=== PATIENT | male | born 1985 | race Two or more races ===

== ENCOUNTER 2020-05-09 17:59 | Inpatient (IN) | payer MEDICAID, OTHER ==
[~2020-05-09] VITALS: Ht 170.2 cm; Wt 95.0 kg
[2020-05-09] MEDS ORDERED: cloNIDine HCL 0.1 MG TAB PO ONE (18:30)
[2020-05-09] MEDS ORDERED: cloNIDine HCL 0.1 MG TAB ONE (18:32)
[2020-05-09 20:24] LABS: Urine Bacteria NONE SEEN /hpf (None Seen); Urine Blood 1+ /uL (Negative); Urine Specific Gravity 1.025 (1.001-1.035); Urine WBC <1 /hpf (0 - 3)
[2020-05-09 20:43] LABS: Eosinophils # (auto) 0 10 ^3/uL (0-0.8); Hemoglobin 18.4 g/dL (13.5-17.5)
[2020-05-09 20:45] LABS: Basophils # (auto) 0.2 10 ^3/uL (0-0.2); Hematocrit 53.4 % (41.0-53.0); Lymphocytes # (auto) 1.2 10 ^3/uL (0.4-5.4); Mean Corpuscular Hemoglobin 33.9 pg (28.0-32.0); Mean Corpuscular Hgb Conc. 34.5 g/dL (32.0-36.0); Mean Corpuscular Volume 98.2 fL (80.0-100.0); Monocytes # (auto) 0.8 10 ^3/uL (0-1.3); Monocytes % (auto) 4.4 % (0.0-12.0); Neutrophils % (auto) 87.6 % (37.0-80.0); Nucleated Red Blood Cells % 0.1 %; Platelet Count (auto) 293 10^3/uL (140-450); Red Blood Cells 5.44 10^6/uL (4.5-5.90); Red Cell Distribution Width 13.4 % (11.8-14.3); White Blood Cell 17.1 10^3/uL (4.4-10.8)
[2020-05-09 21:01] LABS: Magnesium 2.4 mg/dL (1.6-2.6)
[2020-05-09 21:10] LABS: Albumin 4.5 g/dL (3.4-5.0); Calcium 8.8 mg/dL (8.5-10.1)
[2020-05-09 21:17] LABS: Potassium 5.3 mmol/L (3.5-5.1)
[2020-05-09] MEDS ORDERED: DEXTROSE (50%) 50ML SYRG IV PRN ×2 (22:00→22:30)
[2020-05-09] MEDS ORDERED: SODIUM CHLORIDE 0.9% 1,000 ML IVB ONE (22:00)
[2020-05-09] MEDS ORDERED: InsuLIN R (HUMAN) 100 UNITS in SODIUM CHL 0.9% 99 ML IV SCH ×2 (22:00→22:30)
[2020-05-09] MEDS ORDERED: ONDANSETRON HCL 4 MG/2 ML VIAL IV ONE (22:00)
[2020-05-09] MEDS ORDERED: MORPHINE SULF INJ 2 MG/ML SYRINGE 1ML IV ONE (22:00)
[2020-05-09] MEDS ORDERED: SODIUM CHLORIDE 0.9% 1,000 ML IV ONE (22:00)
[2020-05-09 22:02] LABS: BUN/Creatinine Ratio 9.6
[2020-05-09 22:03] LABS: Total Protein 10.1 g/dL (6.4-8.2)
[2020-05-09] MEDS ORDERED: SODIUM BICARBONATE 8.4 % INJ 50ML VIAL IV ONE (22:15)
[2020-05-09] MEDS ORDERED: SODIUM BICARBONATE 8.4% INJ 50ML SYRINGE ONE (22:16)
[2020-05-09] MEDS ORDERED: INSULIN LANTUS (GLARGINE) 1 /0.01ml (100units/ml) SC ONE (22:30)
[2020-05-09] MEDS ORDERED: ACCU-CHEK COMFORT CURVE STRIP VI SCH (22:30)
[2020-05-09] MEDS ORDERED: ONDANSETRON HCL 4 MG/2 ML VIAL IV PRN (22:30)
[2020-05-09] MEDS ORDERED: MORPHINE SULFATE 4 MG/ML SYR/VIAL IV PRN (22:30)
[2020-05-09] MEDS ORDERED: MORPHINE SULF INJ 2 MG/ML SYRINGE 1ML IV PRN (22:30)
[2020-05-09] MEDS ORDERED: NITROGLYCERIN 0.4 MG SL TAB SL PRN (22:30)
[2020-05-09] MEDS: ACCU-CHEK COMFORT CURVE STRIP VI SCH (22:38)
[2020-05-09 22:57] LABS: INR 1.01 (0.9-1.15); Partial Thromboplastin Time 27.9 sec (23.0-31.2)
[2020-05-09] MEDS: SODIUM CHLORIDE 0.9% 1,000 ML IV SCH (23:00)
[2020-05-09] MEDS: cloNIDine HCL 0.1 MG TAB PO PRN (23:37)
[2020-05-09 23:45] LABS: Calcium 7.9 mg/dL (8.5-10.1)
[2020-05-09 23:48] LABS: BUN/Creatinine Ratio 8.7
[2020-05-10] MEDS: ACCU-CHEK COMFORT CURVE STRIP VI SCH ×16 (00:01→22:42)
[2020-05-10 00:11] LABS: Potassium 6.1 mmol/L (3.5-5.1)
[2020-05-10] MEDS ORDERED: SODIUM BICARBONATE 50ML VIAL 50 ML in SOD CHL 0.45% 1,000 ML IV SCH (00:30)
[2020-05-10] MEDS ORDERED: SODIUM BICARBONATE 8.4 % INJ 50ML VIAL IV ONE ×2 (00:30→04:30)
[2020-05-10] MEDS ORDERED: SODIUM ZIRCONIUM CYCL 10 GM PAK PO ONE (00:30)
[2020-05-10] MEDS ORDERED: SODIUM BICARBONATE 8.4% INJ 50ML SYRINGE ONE ×2 (00:45→06:40)
[2020-05-10] MEDS: SODIUM CHLORIDE 0.9% 1,000 ML IV SCH ×3 (01:12→11:10)
[2020-05-10] MEDS ORDERED: LABETALOL HCL 5 MG/ML 4ML SYRINGE IV ONE (01:15)
[2020-05-10] MEDS ORDERED: SODIUM CHLORIDE 0.9% 1,000 ML IV SCH ×2 (02:00→02:30)
[2020-05-10] MEDS ORDERED: dilTIAZem 25 MG/5 ML VIAL IV ONE (02:45)
[2020-05-10] MEDS ORDERED: SODIUM BICARBONATE 50ML VIAL 100 ML in SOD CHL 0.45% 1,000 ML IV ONE (04:30)
[2020-05-10 05:56] LABS: Basophils # (auto) 0 10 ^3/uL (0-0.2); Basophils % (auto) 0.3 % (0.0-2.0); Eosinophils # (auto) 0 10 ^3/uL (0-0.8); Hematocrit 46.7 % (41.0-53.0); Hemoglobin 15.8 g/dL (13.5-17.5); Lymphocytes # (auto) 0.9 10 ^3/uL (0.4-5.4); Lymphocytes % (auto) 6.5 % (10.0-50.0); Mean Corpuscular Hemoglobin 33.1 pg (28.0-32.0); Mean Corpuscular Hgb Conc. 33.8 g/dL (32.0-36.0); Mean Corpuscular Volume 97.9 fL (80.0-100.0); Monocytes % (auto) 6.9 % (0.0-12.0); Neutrophils # (auto) 12.6 10 ^3/uL (1.6-8.6); Neutrophils % (auto) 86.3 % (37.0-80.0); Platelet Count (auto) 215 10^3/uL (140-450); Red Blood Cells 4.77 10^6/uL (4.5-5.90); Red Cell Distribution Width 13.5 % (11.8-14.3); White Blood Cell 14.6 10^3/uL (4.4-10.8)
[2020-05-10 06:18] LABS: BUN/Creatinine Ratio 5.6; Calcium 7.6 mg/dL (8.5-10.1); Potassium 5.4 mmol/L (3.5-5.1)
[2020-05-10] MEDS ORDERED: SODIUM BICARBONATE 50ML VIAL 150 ML in SOD CHL 0.45% 1,000 ML IV ONE (06:30)
[2020-05-10] MEDS: cloNIDine HCL 0.1 MG TAB PO PRN ×2 (10:02→18:40)
[2020-05-10] MEDS: INSULIN LANTUS (GLARGINE) 1 /0.01ml (100units/ml) SC SCH (10:21)
[2020-05-10 10:48] LABS: BUN/Creatinine Ratio 4.3; Calcium 7.7 mg/dL (8.5-10.1); Potassium 4.3 mmol/L (3.5-5.1)
[2020-05-10] MEDS: InsuLIN R (HUMAN) 100 UNITS in SODIUM CHL 0.9% 99 ML IV SCH ×2 (12:40→13:35)
[2020-05-10] MEDS ORDERED: MORPHINE SULF INJ 2 MG/ML SYRINGE 1ML IV PRN (15:30)
[2020-05-10 15:59] LABS: BUN/Creatinine Ratio 4.9; Calcium 8.1 mg/dL (8.5-10.1); Potassium 3.6 mmol/L (3.5-5.1)
[2020-05-10] MEDS: POTASSIUM CHLORIDE 20 MEQ in LACTATED RINGER'S 1,000 ML IV SCH ×2 (17:30→23:29)
[2020-05-10] MEDS ORDERED: InsuLIN REG 1unit/0.01ml Soln (100units/ml) IV ONE (18:15)
[2020-05-10 21:18] LABS: BUN/Creatinine Ratio 5.6; Calcium 8.8 mg/dL (8.5-10.1); Potassium 3.4 mmol/L (3.5-5.1)
[2020-05-10] MEDS: PANTOPRAZOLE 40 MG/10 ML VIAL INJ IV SCH (21:42)
[2020-05-10] MEDS: METOPROLOL TARTRATE 25 MG TAB PO SCH ×2 (21:43→22:43)
[2020-05-11] MEDS: ACCU-CHEK COMFORT CURVE STRIP VI SCH ×9 (01:43→20:54)
[2020-05-11 06:09] LABS: Basophils # (auto) 0 10 ^3/uL (0-0.2); Basophils % (auto) 0.1 % (0.0-2.0); Eosinophils # (auto) 0 10 ^3/uL (0-0.8); Hemoglobin 15.1 g/dL (13.5-17.5); Lymphocytes # (auto) 0.6 10 ^3/uL (0.4-5.4); Lymphocytes % (auto) 6.3 % (10.0-50.0); Mean Corpuscular Hemoglobin 32.8 pg (28.0-32.0); Mean Corpuscular Hgb Conc. 33.6 g/dL (32.0-36.0); Mean Corpuscular Volume 97.7 fL (80.0-100.0); Monocytes # (auto) 0.6 10 ^3/uL (0-1.3); Monocytes % (auto) 6.5 % (0.0-12.0); Neutrophils # (auto) 8.6 10 ^3/uL (1.6-8.6); Neutrophils % (auto) 87.1 % (37.0-80.0); Nucleated Red Blood Cells % 0.1 %; Platelet Count (auto) 165 10^3/uL (140-450); Red Blood Cells 4.61 10^6/uL (4.5-5.90); Red Cell Distribution Width 14.4 % (11.8-14.3); White Blood Cell 9.9 10^3/uL (4.4-10.8)
[2020-05-11 06:26] LABS: Chloride 112 mmol/L (98-107); Potassium 3.3 mmol/L (3.5-5.1); Sodium 139 mmol/L (136-145)
[2020-05-11 06:38] LABS: Alanine Aminotransferase 80 U/L (16-61); Albumin 3.1 g/dL (3.4-5.0); Alkaline Phosphatase 76 U/L (45-117); Amylase 67 U/L (25-115); Anion Gap 14 (5-15); Aspartate Aminotransferase 25 U/L (15-37); BUN/Creatinine Ratio 6.9; Bilirubin, Total 0.9 mg/dL (0.2-1.0); Blood Urea Nitrogen 6 mg/dL (7-18); Carbon Dioxide 13 mmol/L (21-32); Cholesterol 278 mg/dL (< 200); GFR African American 128 mL/min; GFR Non-African American 106 mL/min; Glucose 220 mg/dL (74-106); HDL Cholesterol 40 mg/dL (40-59); Lipase 928 U/L (73-393); Magnesium 2.4 mg/dL (1.6-2.6); Total Protein 7.2 g/dL (6.4-8.2); Triglycerides 419 mg/dL (< 150)
[2020-05-11] MEDS: POTASSIUM CHLORIDE 20 MEQ in LACTATED RINGER'S 1,000 ML IV SCH ×2 (07:28→17:56)
[2020-05-11] MEDS ORDERED: DEXTROSE (50%) 50ML SYRG IV PRN (09:00)
[2020-05-11] MEDS: POTASSIUM CHL 20MEQ/100ML 100 ML IV SCH ×2 (09:14→11:00)
[2020-05-11] MEDS: PANTOPRAZOLE 40 MG/10 ML VIAL INJ IV SCH ×2 (10:15→21:58)
[2020-05-11] MEDS: METOPROLOL TARTRATE 50 MG TAB PO SCH ×2 (10:17→21:58)
[2020-05-11] MEDS: INSULIN LANTUS (GLARGINE) 1 /0.01ml (100units/ml) SC SCH (10:17)
[2020-05-11 10:43] LABS: BUN/Creatinine Ratio 8.1; Calcium 9.5 mg/dL (8.5-10.1); Potassium 3.5 mmol/L (3.5-5.1)
--- NOTE | 2020-05-11 11:55 | NUR ---
Telemetry admit from [facility] admitted to Telemetry unit after SBAR received. Patient oriented to JESSICA HERRERA RN primary RN, unit, room, bed, and unit policies regarding patient care and visiting hours. Patient now on continuous telemetry monitoring, tele box # 86 and telemetry reading on arrival to unit is sinus tachycardia. Patient is on room air, respirations are even and non labored. Weighed by bedscale and encouraged to call if they need something. All questions and concerns addressed, patient verbalized understanding.
[2020-05-11 12:03] VITALS: BP 166/114
[2020-05-11] MEDS: cloNIDine HCL 0.1 MG TAB PO PRN (12:51)
--- NOTE | 2020-05-11 12:51 | NUR ---
PRN blood pressure med given
[2020-05-11 12:55] VITALS: BP 164/114
[2020-05-11] MEDS ORDERED: LISINOPRIL 20 MG TAB PO ONE (14:30)
[2020-05-11] MEDS: InsuLIN REG 1unit/0.01ml Soln (100units/ml) SC SCH ×3 (14:33→20:55)
[2020-05-11 16:51] VITALS: BP 149/105
[2020-05-11] MEDS: ATORVASTATIN 20 MG TAB PO SCH (21:58)
[2020-05-11 22:00] VITALS: BP 151/97
[2020-05-11] MEDS ORDERED: INSULIN LANTUS (GLARGINE) 1 /0.01ml (100units/ml) SC SCH (22:00)
[2020-05-12] MEDS: POTASSIUM CHLORIDE 20 MEQ in LACTATED RINGER'S 1,000 ML IV SCH ×3 (00:07→16:00)
[2020-05-12] MEDS: ACCU-CHEK COMFORT CURVE STRIP VI SCH ×6 (00:07→20:35)
[2020-05-12] MEDS: InsuLIN REG 1unit/0.01ml Soln (100units/ml) SC SCH ×6 (00:13→20:34)
[2020-05-12 05:00] VITALS: BP 159/87
[2020-05-12 06:00] LABS: Basophils # (auto) 0 10 ^3/uL (0-0.2); Basophils % (auto) 0.2 % (0.0-2.0); Eosinophils # (auto) 0 10 ^3/uL (0-0.8); Eosinophils % (auto) 0.1 % (0.0-7.0); Hemoglobin 14.2 g/dL (13.5-17.5); Lymphocytes # (auto) 0.8 10 ^3/uL (0.4-5.4); Lymphocytes % (auto) 7.4 % (10.0-50.0); Mean Corpuscular Hgb Conc. 33.7 g/dL (32.0-36.0); Mean Corpuscular Volume 97.7 fL (80.0-100.0); Monocytes # (auto) 0.8 10 ^3/uL (0-1.3); Monocytes % (auto) 7.3 % (0.0-12.0); Neutrophils # (auto) 9.3 10 ^3/uL (1.6-8.6); Nucleated Red Blood Cells % 0.1 %; Platelet Count (auto) 170 10^3/uL (140-450); Red Cell Distribution Width 13.9 % (11.8-14.3); White Blood Cell 10.9 10^3/uL (4.4-10.8)
[2020-05-12 06:23] LABS: Potassium 3.4 mmol/L (3.5-5.1)
[2020-05-12 06:35] LABS: Albumin 2.8 g/dL (3.4-5.0); BUN/Creatinine Ratio 12.2; Magnesium 2.7 mg/dL (1.6-2.6); Total Protein 6.9 g/dL (6.4-8.2)
--- NOTE | 2020-05-12 07:25 | NUR ---
Opening Shift Note Assumed care of patient, awake, alert and oriented x 4. No S/S of distress/SOB or pain. Respirations are even and non labored on room air. Bed is in the lowest and locked position with side rails up x 2 and call light within reach. Instructed on POC and to call for assist PRN, will continue to monitor for changes Q1hr and PRN.
[2020-05-12 08:47] VITALS: BP 150/101
[2020-05-12 09:09] LABS: Alcohol, Urine < 3.0 mg/dL (0-10); Amphetamine Screen, Urine NEGATIVE (NEGATIVE); Barbiturate Scree,Urine NEGATIVE (NEGATIVE); Benzodiazephine Screen, Urine NEGATIVE (NEGATIVE); Cannabinoid Screen, Urine NEGATIVE (NEGATIVE); Cocaine Screen, Urine NEGATIVE (NEGATIVE); Opiate Scree,Urine NEGATIVE (NEGATIVE); Phencyclidine Screen, Urine NEGATIVE (NEGATIVE)
[2020-05-12] MEDS: PANTOPRAZOLE 40 MG/10 ML VIAL INJ IV SCH ×2 (09:38→21:27)
[2020-05-12] MEDS: METOPROLOL TARTRATE 50 MG TAB PO SCH ×2 (09:49→21:28)
[2020-05-12] MEDS: LISINOPRIL 20 MG TAB PO SCH (09:49)
--- NOTE | 2020-05-12 10:50 | NUR ---
Nutrition Assessment Est energy needs 2860-3219 kcal (18-20 kcal 98.5kg) Est protein needs 67-87g (1-1.3g/kg IBW 67kg) Will reassess prn. Addendum: 05/12/20 at [address] Amended: Links added.
--- NOTE | 2020-05-12 11:50 | NUR ---
Placed call to Rajesh Called to request assistance for [facility] services. Patient is in need of a PCP for continued care.
[2020-05-12 13:00] VITALS: BP 154/95
[2020-05-12] MEDS ORDERED: POTASSIUM CHL 20 Meq TABLET PO ONE (16:00)
--- NOTE | 2020-05-12 16:35 | NUR ---
Patient is a 34-year-old male, who is alert and oriented. Patient cognitive abilities are intact. Patient can perform all ADLs independently. Patient stated that he lives with his parents, patient stated he is divorce and has two children (girls) ages 9 & 12. Patient has plans to return home to his parent house post discharge. Patient stated that he has a car for transportation post discharge. Patient stated that he is a smoker and occasional drinker. Patient stated that he wants to quit smoking and drinking. Patient stated that his parents are his support systems. Discharge planning: SW will provide resources for inpatient and outpatient programs for alcohol abuse including AA. SW will provide resources to quit smoking tobacco. Addendum: 05/12/20 at 1635 by VIRGIL ASHTON Amended: Links added.
[2020-05-12 16:47] VITALS: BP 144/92
--- NOTE | 2020-05-12 19:45 | NUR ---
ASSUMED CARE, PT. AWAKE, NO C/O PAIN, NO SOB.
[2020-05-12] MEDS: ATORVASTATIN 20 MG TAB PO SCH (21:27)
[2020-05-12 22:00] VITALS: BP 147/76
--- NOTE | 2020-05-12 22:00 | NUR ---
pt. t- 102.3, cooling measures applied continuosly, blanket removed, to keep monitor.
--- NOTE | 2020-05-12 22:30 | NUR ---
check pt. t- 102. 8, cooling measures cont. paged hospitalist, waiting to call back.
--- NOTE | 2020-05-12 23:45 | NUR ---
pt. t- 100.9, cooling measures continously, to keep monitor, paged hospitalist, waiting to call back.
[2020-05-12] MEDS: INSULIN LANTUS (GLARGINE) 1 /0.01ml (100units/ml) SC SCH (23:58)
[2020-05-13] VITALS (9 sets, daily range): BP systolic 132–165; BP diastolic 83–116
[2020-05-13] MEDS: InsuLIN REG 1unit/0.01ml Soln (100units/ml) SC SCH ×6 (00:23→21:51)
[2020-05-13] MEDS: ACCU-CHEK COMFORT CURVE STRIP VI SCH ×6 (00:23→21:50)
--- NOTE | 2020-05-13 01:09 | NUR ---
PT. T- 101.3, COOLING MEASURES CONT. TYLENOL GIVEN PO ORDERED, TO KEEP MONITOR.
[2020-05-13] MEDS: ACETAMINOPHEN 325 MG TAB PO PRN ×4 (01:11→20:26)
[2020-05-13] MEDS: cloNIDine HCL 0.1 MG TAB PO PRN (05:20)
--- NOTE | 2020-05-13 05:21 | NUR ---
pt. t- 101.2, cooling measures cont. tylenol given po as ordered, to keep monitor.
[2020-05-13 06:58] LABS: Hemoglobin 13.8 g/dL (13.5-17.5); Mean Corpuscular Hemoglobin 32.9 pg (28.0-32.0); Mean Corpuscular Hgb Conc. 34.5 g/dL (32.0-36.0); Mean Corpuscular Volume 95.2 fL (80.0-100.0); Platelet Count (auto) 161 10^3/uL (140-450); Red Cell Distribution Width 13.3 % (11.8-14.3); White Blood Cell 10.3 10^3/uL (4.4-10.8)
[2020-05-13 07:10] LABS: Basophils % (manual) 0 (0.0-2.0); Blast Cells 0; Eosinophils % (manual) 0 (0-7); Metamyelocytes % 0; Promyelocytes % 0; Reactive Lymphocytes 0
[2020-05-13 07:17] LABS: Albumin 2.6 g/dL (3.4-5.0); Calcium 8.6 mg/dL (8.5-10.1)
[2020-05-13 07:21] LABS: BUN/Creatinine Ratio 10.5; Bilirubin, Total 0.7 mg/dL (0.2-1.0); Total Protein 6.7 g/dL (6.4-8.2)
[2020-05-13 07:27] LABS: Potassium 2.4 mmol/L (3.5-5.1)
[2020-05-13 07:38] LABS: Band Neutrophils % (manual) 11; Lymphocytes % (manual) 11 (10.0-50.0); Monocytes % (manual) 6 (0-12); Myelocytes % 1
[2020-05-13] MEDS ORDERED: POTASSIUM CHLORIDE 40 MEQ, LIDOCAINE 1% (LOCAL ANESTH.) 4 ML in SODIUM CHL 0.9% 250 ML IV ONE (08:30)
[2020-05-13 08:43] LABS: Magnesium 2.3 mg/dL (1.6-2.6)
[2020-05-13 08:47] LABS: Phosphorus 1.5 mg/dL (2.5-4.90)
--- NOTE | 2020-05-13 09:30 | NUR ---
awaiting arrival from pharmacy of potassium with emmett.
[2020-05-13] MEDS: POTASSIUM CHLORIDE 20 MEQ in LACTATED RINGER'S 1,000 ML IV SCH (09:35)
[2020-05-13] MEDS: PANTOPRAZOLE 40 MG/10 ML VIAL INJ IV SCH (09:48)
[2020-05-13] MEDS: METOPROLOL TARTRATE 50 MG TAB PO SCH ×2 (09:49→21:50)
[2020-05-13] MEDS: LISINOPRIL 20 MG TAB PO SCH (09:49)
[2020-05-13] MEDS ORDERED: metFORMIN HYDROCHLORIDE 500 MG TAB PO ONE (10:00)
[2020-05-13] MEDS ORDERED: POTASSIUM CHL 20 Meq TABLET PO ONE ×2 (10:00→16:30)
--- NOTE | 2020-05-13 13:00 | NUR ---
COOLING MEASURES PLACED FOR FEVER.
[2020-05-13] MEDS ORDERED: SODIUM PHOSPHATES 40 MEQ in D5W 5% 250 ML IV ONE (13:15)
[2020-05-13] MEDS ORDERED: DEXTROSE (50%) 50ML SYRG IV PRN (13:30)
[2020-05-13] MEDS ORDERED: PANTOPRAZOLE 40 MG TAB PO ONE (13:30)
--- NOTE | 2020-05-13 13:30 | NUR ---
PROTONIX IV GIVEN THIS AM.
--- NOTE | 2020-05-13 13:48 | NUR ---
Report/SBAR Received Report/SBAR received from SHELDON Lugo.
--- NOTE | 2020-05-13 13:50 | NUR ---
TRANSFER TO COVID UNIT FOR COVID RULE OUT
--- NOTE | 2020-05-13 13:53 | NUR ---
COVID SWAB TAKEN DOWN TO LAB BY [facility] CHARGE NURSE.
--- NOTE | 2020-05-13 13:53 | NUR ---
FLU A&B RAPID SENT TO LAB
--- NOTE | 2020-05-13 14:20 | NUR ---
PATIENT POTASSIUM COMPLETED, PATIENT BRIEFED ON ROOM CHANGE.
--- NOTE | 2020-05-13 14:25 | NUR ---
NEW MONITOR ATTACHED TO PATIENT, OLD TELE GIVEN BACK TO MONITOR TECHS. TAKEN OVER TO COVID UNIT
--- NOTE | 2020-05-13 14:45 | NUR ---
Patient Transferred Patient transferred to room 244-8. Patient tolerated well. No status change. Patient on RA.
[2020-05-13] MEDS ORDERED: METOPROLOL SUCCINATE XL 50 MG TAB PO ONE (15:15)
--- NOTE | 2020-05-13 15:15 | NUR ---
EKG EKG ordered done
[2020-05-13] MEDS: SODIUM CHLORIDE 0.9% 1,000 ML IV SCH (15:21)
--- NOTE | 2020-05-13 15:25 | NUR ---
CARDIAC CATH TECHNOLOGIST at Bedside CARDIAC CATH TECHNOLOGIST Rosalva at bedside.
--- NOTE | 2020-05-13 16:20 | NUR ---
Paged Dr. David pagealmas due to patient critical lab of 2.9L, waiting to call back.
--- NOTE | 2020-05-13 16:26 | NUR ---
Orders Received Dr. David called back, ordered Potassium Table 60 meq PO once. Repeated orders to verified.
[2020-05-13] MEDS ORDERED: metFORMIN HYDROCHLORIDE 500 MG TAB PO SCH (18:00)
--- NOTE | 2020-05-13 18:58 | NUR ---
Patient Off Unit Patient taken off unit via wheelchair for CT Scan.
--- NOTE | 2020-05-13 19:10 | NUR ---
Back in Unit Patient back in Unit.
--- NOTE | 2020-05-13 19:42 | NUR ---
Report/SBAR Given Report/SBAR given to SHELDON Beck. Patient will be going to Room #212A.
--- NOTE | 2020-05-13 20:00 | NUR ---
Opening Shift Note Assumed care of patient, awake and alert. No S/S of distress/SOB or pain. Instructed on POC and to call for assist PRN, will continue to monitor for changes Q1hr and PRN.
[2020-05-13] MEDS: PANTOPRAZOLE 40 MG TAB PO SCH (21:49)
[2020-05-13] MEDS: ATORVASTATIN 20 MG TAB PO SCH (21:49)
[2020-05-13] MEDS: INSULIN LANTUS (GLARGINE) 1 /0.01ml (100units/ml) SC SCH (21:51)
[2020-05-14 04:55] VITALS: BP 162/101
[2020-05-14 06:00] LABS: Basophils # (auto) 0 10 ^3/uL (0-0.2); Basophils % (auto) 0.3 % (0.0-2.0); Eosinophils # (auto) 0 10 ^3/uL (0-0.8); Eosinophils % (auto) 0.1 % (0.0-7.0); Hematocrit 43.7 % (41.0-53.0); Hemoglobin 15.1 g/dL (13.5-17.5); Lymphocytes % (auto) 9.9 % (10.0-50.0); Mean Corpuscular Hemoglobin 32.7 pg (28.0-32.0); Mean Corpuscular Hgb Conc. 34.6 g/dL (32.0-36.0); Mean Corpuscular Volume 94.5 fL (80.0-100.0); Monocytes # (auto) 0.8 10 ^3/uL (0-1.3); Neutrophils # (auto) 8.3 10 ^3/uL (1.6-8.6); Neutrophils % (auto) 81.7 % (37.0-80.0); Nucleated Red Blood Cells % 0.1 %; Platelet Count (auto) 179 10^3/uL (140-450); Red Blood Cells 4.63 10^6/uL (4.5-5.90); Red Cell Distribution Width 13.4 % (11.8-14.3); White Blood Cell 10.2 10^3/uL (4.4-10.8)
[2020-05-14 06:34] LABS: BUN/Creatinine Ratio 9.3; Bilirubin, Total 0.5 mg/dL (0.2-1.0); Calcium 8.9 mg/dL (8.5-10.1); Magnesium 2.2 mg/dL (1.6-2.6); Phosphorus 2.2 mg/dL (2.5-4.90); Total Protein 7.3 g/dL (6.4-8.2)
[2020-05-14 06:38] LABS: Albumin 2.7 g/dL (3.4-5.0)
[2020-05-14] MEDS: ACCU-CHEK COMFORT CURVE STRIP VI SCH ×4 (06:46→22:05)
[2020-05-14] MEDS: InsuLIN REG 1unit/0.01ml Soln (100units/ml) SC SCH ×4 (06:46→21:53)
[2020-05-14] MEDS: cloNIDine HCL 0.1 MG TAB PO PRN (06:48)
--- NOTE | 2020-05-14 07:00 | NUR ---
CRITICAL LAB RECEIVED POTASSIUM 2.5 ORDERS OBTAINED FROM PRODUCT INFO SPECIALIST PHYSICIAN.
[2020-05-14 07:01] LABS: Potassium 2.5 mmol/L (3.5-5.1)
[2020-05-14] MEDS ORDERED: POTASSIUM CHL 20 Meq TABLET PO ONE ×2 (07:15→10:00)
--- NOTE | 2020-05-14 07:30 | NUR ---
Opening shift note Assumed care patient in bed AOx4. Patient denies nay pain at this time. Patient updated on POC and to call for assistance as needed. Bed in lowest, locked position, call light within reach, side rails x2 up. Will continue care.
[2020-05-14] MEDS ORDERED: POTASSIUM CHL 20MEQ/100ML 100 ML IV ONE (08:30)
[2020-05-14 09:00] VITALS: BP 145/97
[2020-05-14] MEDS: LISINOPRIL 20 MG TAB PO SCH (09:30)
[2020-05-14] MEDS: SODIUM CHLORIDE 0.9% 1,000 ML IV SCH (09:30)
--- NOTE | 2020-05-14 09:30 | NUR ---
Verified potassium orders with Cardio DISPLAYER Paged DISPLAYER Genny Marmolejo regarding new order for 60 meq Potassium- ER tablet PO one time order. DISPLAYER made aware that patient received 40 mEq potassium- ER tablet PO, and Potassium Chl 20mEq/100ml IV rider this morning. Per Genny OK to give additional 60 mEq Potassium-ER tablet PO for a total of 120 mEq of Potassium.
[2020-05-14] MEDS: METOPROLOL TARTRATE 25 MG TAB PO SCH ×2 (09:33→22:00)
[2020-05-14] MEDS: ACETAMINOPHEN 325 MG TAB PO PRN (09:33)
[2020-05-14] MEDS: PANTOPRAZOLE 40 MG TAB PO SCH ×2 (09:33→22:00)
--- NOTE | 2020-05-14 09:33 | NUR ---
Elevated temperature/ medication given Elevated temperature of 100.9 noted. Will administer Tylenol 650 mg PO q4hr PRN at this time and continue to monitor.
[2020-05-14] MEDS ORDERED: METOPROLOL TARTRATE 25 MG TAB PO SCH (10:00)
[2020-05-14] MEDS ORDERED: PIPERACILLIN-TAZOB 3.375GM 100 ML IV ONE (10:00)
[2020-05-14 11:02] LABS: Lactate Dehydrogenase 325 U/L (87-241)
[2020-05-14 11:24] LABS: CRP High Sensitivity > 19 mg/dL (< 0.3)
--- NOTE | 2020-05-14 11:24 | NUR ---
Nutrition Followup Notes Wt: 71.3 kg Pt was sleeping with no family by bedside. pt with pancreatitis. pt is down graded to clear liq diet with inadequate PO of 75% x 3 per RN doc Est energy needs 4294-1985 kcal (18-20 kcal 98.5kg) Est protein needs 67-87g (1-1.3g/kg IBW 67kg) Will reassess prn. LABS: GLU 207 H AMYLASE/LIPASE 126/1629 H, ALB 2.7 L GI: Pt had 3 BM today per RN doc. BS: 20 low risk. Refer to wound assessment report for full details. PES: Inadequate oral intake aeb pt with a clear liquid diet with 75% po intake r/t current medical condition Altered nutrition related labs aeb pt with hyponatremia, hypokalemia, hypoalb, hyperglycemia r/t current medical condition Comments: Will continue to monitor PO status, skin status, pertinent labs and weight trends. Will f/u in 2-3 days Rec: 1) Refer to [employer] dietitian on DC. 2) advance diet as medically feasible. 3) Continue current plan of care
[2020-05-14] MEDS ORDERED: SODIUM PHOSPHATES 40 MEQ in D5W 5% 250 ML IV ONE ×2 (12:15→18:15)
[2020-05-14] MEDS ORDERED: ENOXAPARIN SOD 100 MG/1 ML SYRINGE SC ONE (12:30)
[2020-05-14] MEDS ORDERED: ZINC SULFATE 220mg CAP or TAB PO ONE (12:30)
[2020-05-14] MEDS ORDERED: ASCORBIC ACID 500 MG TAB PO ONE (12:30)
[2020-05-14] MEDS ORDERED: CHOLECALCIFEROL (VITD3) 2,000 UNIT CAP PO ONE (12:30)
[2020-05-14 13:00] VITALS: BP 121/92
[2020-05-14 17:00] VITALS: BP 149/108
--- NOTE | 2020-05-14 17:10 | NUR ---
Patient refusing Tylenol for elevated Temp Patient refusing Tylenol for elevated temperature of 100.2 at this time. Patient states he is "too nauseous" to take medication. Patient was offered Zofran to help with nausea, patient refuses medication at this time and states, "I don't like taking medications unless I feel like I need it." Cooling measures initiated at this time. Will continue to monitor.
[2020-05-14] MEDS: PIPERACILLIN-TAZOB 3.375GM 100 ML IV SCH (18:07)
--- NOTE | 2020-05-14 19:10 | NUR ---
Endorsing care and medication administration Endorsing care of patient to NOC RN Castillo. Patient currently sitting on bedside attempting to eat dinner. No s/s of distress noted. Patient continues to be nauseous at this time. Patient made aware he has Zofran if needed for Nausea he verbalized understanding. Administration of Sodium Phosphate 40meq in D5ws 5%/250 ml endorsed to NOC RN as patient is currently running Zosyn through IV line.
[2020-05-14] MEDS: INSULIN LANTUS (GLARGINE) 1 /0.01ml (100units/ml) SC SCH (21:53)
[2020-05-14] MEDS: ENOXAPARIN SOD 80 MG/0.8ML SYRINGE SC SCH (21:57)
[2020-05-14] MEDS: ATORVASTATIN 20 MG TAB PO SCH (22:00)
[2020-05-14 23:30] VITALS: BP 145/93
[2020-05-15] MEDS: PIPERACILLIN-TAZOB 3.375GM 100 ML IV SCH ×4 (01:00→18:01)
[2020-05-15] MEDS: ACETAMINOPHEN 325 MG TAB PO PRN ×3 (04:46→22:21)
[2020-05-15 05:14] VITALS: BP 137/90
[2020-05-15] MEDS: SODIUM CHLORIDE 0.9% 1,000 ML IV SCH (05:30)
[2020-05-15] MEDS: InsuLIN REG 1unit/0.01ml Soln (100units/ml) SC SCH ×2 (06:32→11:56)
[2020-05-15] MEDS: ACCU-CHEK COMFORT CURVE STRIP VI SCH ×4 (06:32→21:23)
[2020-05-15 07:29] LABS: Hematocrit 40.7 % (41.0-53.0); Mean Corpuscular Hemoglobin 32.6 pg (28.0-32.0); Mean Corpuscular Hgb Conc. 34.3 g/dL (32.0-36.0); Mean Corpuscular Volume 94.9 fL (80.0-100.0); Platelet Count (auto) 183 10^3/uL (140-450); Red Blood Cells 4.29 10^6/uL (4.5-5.90); Red Cell Distribution Width 13.3 % (11.8-14.3)
[2020-05-15 07:33] LABS: Basophils % (manual) 0 (0.0-2.0); Blast Cells 0; Eosinophils % (manual) 0 (0-7); Promyelocytes % 0; Reactive Lymphocytes 0
[2020-05-15] MEDS ORDERED: NITROGLYCERIN 0.4 MG SL TAB SL ONE (07:36)
--- NOTE | 2020-05-15 07:36 | NUR ---
Chest Pain 0736 am- Patient complaining of right sided chest pain at this time. Patient rates pain 7/10 and non radiating. Patient states he has been feeling pain all night but it intensified as he attempted to ambulate to restroom. First dose of Nitroglycerin per chest pain protocol given at this time. EKG obtained and signed by ER doctor. 0750 am- Per patient chest pain decreased after he burped so he believes chest pain was associated with accumulated gas. Will continue to monitor.
[2020-05-15 07:39] LABS: Albumin 2.5 g/dL (3.4-5.0); Calcium 8.1 mg/dL (8.5-10.1)
[2020-05-15 07:48] LABS: Bilirubin, Total 0.6 mg/dL (0.2-1.0); Total Protein 7.1 g/dL (6.4-8.2)
[2020-05-15 08:23] LABS: Potassium 2.7 mmol/L (3.5-5.1)
[2020-05-15 08:26] LABS: BUN/Creatinine Ratio 8.1
--- NOTE | 2020-05-15 08:30 | NUR ---
HOSPITALIST PAGED FOR CRITICAL LAB Received critical Potassium of 2.7 mmol/L. Hospitalist paged. Dr. White paged back at this time. New order for 100 meq Potassium Effervesent Tablet PO one time dose. Will carry orders and continue to monitor.
[2020-05-15] MEDS ORDERED: POTASSIUM EFFERVESENT TAB 25 MEQ PO ONE (08:45)
[2020-05-15 09:00] VITALS: BP 136/93
[2020-05-15] MEDS: ASCORBIC ACID 500 MG TAB PO SCH (09:31)
[2020-05-15] MEDS: ZINC SULFATE 220mg CAP or TAB PO SCH (09:31)
[2020-05-15] MEDS: PANTOPRAZOLE 40 MG TAB PO SCH ×2 (09:31→21:20)
[2020-05-15] MEDS: LISINOPRIL 20 MG TAB PO SCH (09:32)
[2020-05-15] MEDS: ENOXAPARIN SOD 80 MG/0.8ML SYRINGE SC SCH ×2 (09:32→21:20)
[2020-05-15] MEDS: METOPROLOL TARTRATE 25 MG TAB PO SCH ×2 (09:33→21:23)
--- NOTE | 2020-05-15 09:35 | NUR ---
Patient refusing Potassium Patient refusing 100 meq Potassium Effervescent tab one time order at this time. Patient states that is too much fluid to drink and he will not be able to tolerate drinking without throwing up. Will page MD to get order replaced.
[2020-05-15] MEDS ORDERED: IOHEXOL 350 MG/ML 100ML IJ ONE (09:42)
[2020-05-15] MEDS ORDERED: POTASSIUM CHL 20MEQ/100ML 100 ML IV ONE (09:45)
[2020-05-15] MEDS ORDERED: POTASSIUM CHL 20 Meq TABLET PO ONE (09:45)
[2020-05-15] MEDS: INSULIN LANTUS (GLARGINE) 1 /0.01ml (100units/ml) SC SCH ×2 (09:48→21:30)
[2020-05-15] MEDS ORDERED: CHOLECALCIFEROL (VITD3) 2,000 UNIT CAP PO SCH (10:00)
[2020-05-15 12:14] LABS: Band Neutrophils % (manual) 11; Lymphocytes % (manual) 8 (10.0-50.0); Metamyelocytes % 2; Monocytes % (manual) 8 (0-12); Myelocytes % 1
[2020-05-15 13:00] VITALS: BP 145/78
--- NOTE | 2020-05-15 13:50 | NUR ---
Elevated temperature/ medication given Elevated temperature of 101.4 noted. Will administer Tylenol 650 mg PO q4hr PRN at this time and continue to monitor.
[2020-05-15] MEDS ORDERED: OPTISON 3ml Vial for INJ IV ONE (13:58)
--- NOTE | 2020-05-15 15:40 | NUR ---
Dr. Olu Toro at bedside Dr. Olu Toro at bedside discussing with patient POC. New orders received at this time. Check EMAR for additional information. Will carry out orders and continue care.
[2020-05-15 17:00] VITALS: BP 127/78
[2020-05-15] MEDS ORDERED: CLINIMIX PER PHARMACY 0 ML IV SCH (17:15)
--- NOTE | 2020-05-15 19:25 | NUR ---
Opening shift note Assumed care of patient from day shift RN. Patient A&Ox4, respirations even and non-labored with no s/s of distress at this time. Discussed POC and NPO status with patient who verbalized understanding. Bed in lowest locked position with 2 side rails up, call light within reach. Will continue to monitor Q1hr and PRN.
[2020-05-15] MEDS ORDERED: AMINO ACID INFUSION IN D5W 2,000 ML IV SCH (20:00)
[2020-05-15] MEDS: ATORVASTATIN 20 MG TAB PO SCH (21:20)
[2020-05-15] MEDS: POTASSIUM CHL 20 Meq TABLET PO SCH (21:21)
[2020-05-15 22:00] VITALS: BP 133/88
--- NOTE | 2020-05-15 22:00 | NUR ---
Temperature 100.7 Ice packs applied, blankets removed. Patient tolerated well. Will continue to monitor.
--- NOTE | 2020-05-15 22:16 | NUR ---
IV insertion IV access obtained, via clean sterile technique by inserting 20 gauge catheter at LFA after 2 attempt(s). IV secured properly. No trauma to site. Patient tolerated well.
--- NOTE | 2020-05-15 22:20 | NUR ---
Temperature reassessed: 98.6 Patient resting without complaint at this time. Will continue to monitor.
[2020-05-16] MEDS ORDERED: DEXTROSE (50%) 50ML SYRG IV SCH
[2020-05-16] MEDS: ACCU-CHEK COMFORT CURVE STRIP VI SCH ×5 (00:22→17:45)
[2020-05-16] MEDS: PIPERACILLIN-TAZOB 3.375GM 100 ML IV SCH ×4 (00:23→17:44)
[2020-05-16] MEDS: InsuLIN REG 1unit/0.01ml Soln (100units/ml) SC SCH ×4 (00:25→17:47)
[2020-05-16] MEDS: SODIUM CHLORIDE 0.9% 1,000 ML IV SCH (00:30)
[2020-05-16 04:39] VITALS: BP 137/81
[2020-05-16 06:30] LABS: Albumin 2.5 g/dL (3.4-5.0); Calcium 8.5 mg/dL (8.5-10.1)
--- NOTE | 2020-05-16 06:42 | NUR ---
Patient resting Patient sleeping, respirations even and non-labored with no s/s of distress at this time.
[2020-05-16 06:48] LABS: BUN/Creatinine Ratio 4.4; Bilirubin, Total 0.6 mg/dL (0.2-1.0); Magnesium 2.5 mg/dL (1.6-2.6); Phosphorus 2.3 mg/dL (2.5-4.90); Pre Albumin 10.2 mg/dL (20.0-40.0); Total Protein 7.1 g/dL (6.4-8.2)
[2020-05-16 06:52] LABS: Potassium 2.7 mmol/L (3.5-5.1)
--- NOTE | 2020-05-16 06:53 | NUR ---
Critical lab Calcium 2.7 Will notify physician. Addendum: 05/16/20 at 0708 by ISAURA ZAMBRANO RN RN Correction: Potassium 2.7
--- NOTE | 2020-05-16 06:58 | NUR ---
Attempted to contact PBX for hospitalist page. Was unable to get an answer, will call back shortly
[2020-05-16] MEDS ORDERED: POTASSIUM CHL 20 Meq TABLET PO ONE (07:15)
--- NOTE | 2020-05-16 07:15 | NUR ---
Hospitalist returned call Orders given: Klor-con 40 MEQ, PO Once. Orders entered.
[2020-05-16 08:30] VITALS: BP 142/90
--- NOTE | 2020-05-16 08:41 | NUR ---
Opening Shift Note Assumed care of patient, awake and alert. No S/S of distress/SOB or pain. Patient remains NPO, tolerating well. Instructed on POC and to call for assist PRN, will continue to monitor for changes Q1hr and PRN.
[2020-05-16] MEDS: ZINC SULFATE 220mg CAP or TAB PO SCH (09:08)
[2020-05-16] MEDS: CHOLECALCIFEROL (VITD3) 1,000UNIT=25mCg TAB PO SCH (09:08)
[2020-05-16] MEDS: PANTOPRAZOLE 40 MG TAB PO SCH ×2 (09:08→22:35)
[2020-05-16] MEDS: METOPROLOL TARTRATE 25 MG TAB PO SCH ×2 (09:09→22:34)
[2020-05-16] MEDS ORDERED: POTASSIUM PHOSPHATE 44 MEQ in D5W 5% 250 ML IV ONE (09:15)
[2020-05-16] MEDS: POTASSIUM CHL 20 Meq TABLET PO SCH ×2 (09:22→22:35)
[2020-05-16] MEDS: LISINOPRIL 20 MG TAB PO SCH (09:30)
[2020-05-16] MEDS: INSULIN LANTUS (GLARGINE) 1 /0.01ml (100units/ml) SC SCH ×2 (09:32→22:55)
[2020-05-16] MEDS: ENOXAPARIN SOD 80 MG/0.8ML SYRINGE SC SCH ×2 (10:00→22:36)
--- NOTE | 2020-05-16 12:24 | NUR ---
Nutrition Followup Notes Wt: 98.7 kg Pt was awake when rounded this morning. Pt with DKA & pancreatitis, NPO with clinimix running @ 50ml/hr. Educated pt on diet, and will leave [employer] DM booklet and Class Schedule in pt D/C file. Pt with no distress. Est energy needs 6044-9522 kcal (18-20 kcal 98.5kg) Est protein needs 67-87g (1-1.3g/kg IBW 67kg) Will reassess prn. LABS: GLU 246 H AMYLASE/LIPASE 197/3096 H, ALB 2.5 L, K 2.7 L GI: Pt had 2 BM today per RN doc. BS: 20 low risk. Refer to wound assessment report for full details. PES: 1) Inadequate oral intake aeb pt with a clear liquid diet with 75% po intake r/t current medical condition 2) Altered nutrition related labs aeb pt with hyponatremia, hypokalemia, hypoalb, hyperglycemia r/t current medical condition Comments: Will continue to monitor PO status, skin status, pertinent labs and weight trends. Will f/u in 2-3 days Rec: 1) Refer to [employer] dietitian on DC. 2) advance diet as medically feasible. 3) Continue current plan of care
[2020-05-16 12:30] VITALS: BP 127/90
--- NOTE | 2020-05-16 13:00 | NUR ---
covid test taken to the lab by iban CHUNG
[2020-05-16] MEDS ORDERED: VANCOMYCIN HCL 125MG/5ML ORAL SOL PO ONE (13:29)
--- NOTE | 2020-05-16 13:59 | NUR ---
taken to ct of abdomen via wheelchair.
[2020-05-16] MEDS: SOD CHL 0.9%/ KCL 40MEQ 1,000 ML IV SCH (14:24)
--- NOTE | 2020-05-16 14:30 | NUR ---
called pharmacy vancomycin PO not in [place]
[2020-05-16] MEDS: hydrALAZINE HCL 25 MG TAB PO SCH ×2 (16:11→18:00)
[2020-05-16] MEDS: ASCORBIC ACID 500 MG TAB PO SCH (16:56)
[2020-05-16 16:57] VITALS: BP 134/77
--- NOTE | 2020-05-16 17:40 | NUR ---
vancomycin delivered to the med room. one time dose non admin.
[2020-05-16] MEDS: VANCOMYCIN HCL 125MG/5ML ORAL SOL PO SCH ×2 (17:44→22:35)
[2020-05-16 18:43] LABS: Bilirubin, Direct 0.3 mg/dL (0-0.2)
[2020-05-16 18:47] LABS: Bilirubin, Total 0.6 mg/dL (0.2-1.0); Total Protein 7.9 g/dL (6.4-8.2)
[2020-05-16 18:58] LABS: Albumin 2.8 g/dL (3.4-5.0)
--- NOTE | 2020-05-16 19:17 | NUR ---
ENDORSED CARE TO NIGHT RN. PATIENT STILL RUNNING ZOSYN.
--- NOTE | 2020-05-16 19:20 | NUR ---
Opening shift note Assumed care of patient from day shift RN, Edouard. Patient is sitting on the side of the bed A&Ox4, respirations even and non-labored with no s/s of distress or c/o pain. Patient stated that he felt much better today than he did the day before. Discussed the patients POC and answered questions, the patient verbalized understanding. Bed in lowest locked position with 2 side rails up, call light within reach, will continue to monitor Q1hr and PRN.
[2020-05-16] MEDS ORDERED: AMINO ACID INFUSION IN D5W 2,000 ML IV SCH (20:00)
[2020-05-16 22:00] VITALS: BP 119/72
[2020-05-16] MEDS: ATORVASTATIN 20 MG TAB PO SCH (22:33)
[2020-05-17] MEDS: ACCU-CHEK COMFORT CURVE STRIP VI SCH ×4 (00:13→18:53)
[2020-05-17] MEDS: PIPERACILLIN-TAZOB 3.375GM 100 ML IV SCH ×4 (00:19→18:52)
[2020-05-17] MEDS: InsuLIN REG 1unit/0.01ml Soln (100units/ml) SC SCH ×4 (00:20→19:20)
[2020-05-17] MEDS: SOD CHL 0.9%/ KCL 40MEQ 1,000 ML IV SCH ×2 (03:43→13:45)
[2020-05-17 05:00] VITALS: BP 128/86
[2020-05-17] MEDS: hydrALAZINE HCL 25 MG TAB PO SCH ×4 (06:00→18:53)
[2020-05-17 06:11] LABS: Basophils # (auto) 0.1 10 ^3/uL (0-0.2); Basophils % (auto) 0.4 % (0.0-2.0); Eosinophils # (auto) 0 10 ^3/uL (0-0.8); Eosinophils % (auto) 0.3 % (0.0-7.0); Hemoglobin 14.1 g/dL (13.5-17.5); Lymphocytes # (auto) 1.8 10 ^3/uL (0.4-5.4); Lymphocytes % (auto) 10.9 % (10.0-50.0); Mean Corpuscular Hemoglobin 32.2 pg (28.0-32.0); Mean Corpuscular Hgb Conc. 33.6 g/dL (32.0-36.0); Mean Corpuscular Volume 95.7 fL (80.0-100.0); Monocytes # (auto) 1.1 10 ^3/uL (0-1.3); Monocytes % (auto) 6.6 % (0.0-12.0); Neutrophils # (auto) 13.6 10 ^3/uL (1.6-8.6); Neutrophils % (auto) 81.8 % (37.0-80.0); Nucleated Red Blood Cells % 0.1 %; Platelet Count (auto) 240 10^3/uL (140-450); Red Blood Cells 4.39 10^6/uL (4.5-5.90); Red Cell Distribution Width 13.8 % (11.8-14.3); White Blood Cell 16.7 10^3/uL (4.4-10.8)
[2020-05-17 06:20] LABS: Chloride 104 mmol/L (98-107); Potassium 3.2 mmol/L (3.5-5.1); Sodium 136 mmol/L (136-145)
[2020-05-17 06:37] LABS: Alanine Aminotransferase 44 U/L (16-61); Albumin 2.5 g/dL (3.4-5.0); Alkaline Phosphatase 129 U/L (45-117); Amylase 196 U/L (25-115); Anion Gap 9 (5-15); Aspartate Aminotransferase 52 U/L (15-37); BUN/Creatinine Ratio 9.1; Bilirubin, Total 0.5 mg/dL (0.2-1.0); Blood Urea Nitrogen 8 mg/dL (7-18); Carbon Dioxide 23 mmol/L (21-32); GFR African American 126 mL/min; GFR Non-African American 104 mL/min; Glucose 222 mg/dL (74-106); Lactate Dehydrogenase 269 U/L (87-241); Lipase 3586 U/L (73-393); Magnesium 2.4 mg/dL (1.6-2.6); Phosphorus 2.6 mg/dL (2.5-4.90); Total Protein 7.2 g/dL (6.4-8.2)
[2020-05-17] MEDS: VANCOMYCIN HCL 125MG/5ML ORAL SOL PO SCH ×2 (06:39→12:00)
[2020-05-17 06:42] LABS: CRP High Sensitivity > 19.0 mg/dL (< 0.3)
--- NOTE | 2020-05-17 07:00 | NUR ---
Patient sleeping Respirations even and non-labored with no s/s of distress at this time.
[2020-05-17] MEDS: CHOLECALCIFEROL (VITD3) 1,000UNIT=25mCg TAB PO SCH (09:14)
[2020-05-17] MEDS: ASCORBIC ACID 500 MG TAB PO SCH (09:15)
[2020-05-17] MEDS: METOPROLOL TARTRATE 25 MG TAB PO SCH (09:15)
[2020-05-17] MEDS: POTASSIUM CHL 20MEQ/100ML 100 ML IV SCH ×2 (09:15→11:15)
[2020-05-17] MEDS: POTASSIUM CHL 20 Meq TABLET PO SCH (09:16)
[2020-05-17] MEDS: PANTOPRAZOLE 40 MG TAB PO SCH (09:16)
[2020-05-17] MEDS: ZINC SULFATE 220mg CAP or TAB PO SCH (09:16)
[2020-05-17] MEDS: LISINOPRIL 20 MG TAB PO SCH (09:17)
[2020-05-17] MEDS: ENOXAPARIN SOD 80 MG/0.8ML SYRINGE SC SCH (09:18)
[2020-05-17 12:13] VITALS: BP 120/75
[2020-05-17] MEDS: INSULIN LANTUS (GLARGINE) 1 /0.01ml (100units/ml) SC SCH (12:56)
--- NOTE | 2020-05-17 13:03 | NUR ---
refused iv potassium dr colón aware patient refused all iv potassium. patient stated ,"the potassium is causing my diarrhea".
--- NOTE | 2020-05-17 13:03 | NUR ---
NPO for renal ultra sound 1200 scheduled po medication held.
[2020-05-17 16:48] VITALS: BP 136/76
--- NOTE | 2020-05-17 18:00 | NUR ---
formed bm per patient diarrhea has decreased.
--- NOTE | 2020-05-17 19:14 | NUR ---
ENDORSD CARE TO NIGHT SHELDON CASAS.
--- NOTE | 2020-05-17 19:20 | NUR ---
Opening shift note Assumed care of patient from day shift RN, Edouard. Patient is A&Ox4, respirations even and non-labored with no s/s of distress at this time. Discussed POC with patient who verbalized understanding. Bed in lowest locked position with 2 side rails up, call light within reach. Will continue to monitor. Q1hr and PRN.
[2020-05-17] MEDS ORDERED: CLINIMIX PER PHARMACY IV NR (20:00)
[2020-05-17 22:03] VITALS: BP 132/76
[2020-05-18] MEDS: PANTOPRAZOLE 40 MG TAB PO SCH ×3 (00:26→20:53)
[2020-05-18] MEDS: ATORVASTATIN 20 MG TAB PO SCH ×2 (00:26→20:53)
[2020-05-18] MEDS: POTASSIUM CHL 20 Meq TABLET PO SCH ×2 (00:26→10:27)
[2020-05-18] MEDS: METOPROLOL TARTRATE 25 MG TAB PO SCH ×3 (00:27→20:55)
[2020-05-18] MEDS: ACCU-CHEK COMFORT CURVE STRIP VI SCH ×5 (00:28→23:07)
[2020-05-18] MEDS: PIPERACILLIN-TAZOB 3.375GM 100 ML IV SCH ×5 (00:28→23:01)
[2020-05-18] MEDS: INSULIN LANTUS (GLARGINE) 1 /0.01ml (100units/ml) SC SCH ×3 (00:47→21:01)
[2020-05-18] MEDS: InsuLIN REG 1unit/0.01ml Soln (100units/ml) SC SCH ×5 (00:48→23:06)
[2020-05-18 04:55] VITALS: BP 132/78
[2020-05-18] MEDS: hydrALAZINE HCL 25 MG TAB PO SCH ×5 (05:22→23:02)
[2020-05-18 05:31] LABS: Hematocrit 41.5 % (41.0-53.0); Hemoglobin 13.9 g/dL (13.5-17.5); Mean Corpuscular Hgb Conc. 33.5 g/dL (32.0-36.0); Mean Corpuscular Volume 95.6 fL (80.0-100.0); Platelet Count (auto) 252 10^3/uL (140-450); Red Blood Cells 4.34 10^6/uL (4.5-5.90); Red Cell Distribution Width 13.4 % (11.8-14.3); White Blood Cell 14.7 10^3/uL (4.4-10.8)
[2020-05-18 05:53] LABS: Basophils % (manual) 0 (0.0-2.0); Blast Cells 0; Myelocytes % 0; Promyelocytes % 0; Reactive Lymphocytes 0
[2020-05-18 05:56] LABS: Potassium 3.8 mmol/L (3.5-5.1)
[2020-05-18 06:03] LABS: Albumin 2.4 g/dL (3.4-5.0); BUN/Creatinine Ratio 7.7; Bilirubin, Total 0.6 mg/dL (0.2-1.0); Calcium 9.4 mg/dL (8.5-10.1); Magnesium 2.4 mg/dL (1.6-2.6); Phosphorus 3.7 mg/dL (2.5-4.90); Total Protein 7.2 g/dL (6.4-8.2)
--- NOTE | 2020-05-18 06:59 | NUR ---
Patient sleeping Patient respirations even and non-labored with no s/s of distress at this time.
--- NOTE | 2020-05-18 07:56 | NUR ---
Opening Shift Note Assumed care of patient, awake and alert. No S/S of distress/SOB or pain. Patient still refusing IV potassium. Last temps 98.6 and 98.3. Instructed on POC and to call for assist PRN, will continue to monitor for changes Q1hr and PRN.
[2020-05-18 08:59] VITALS: BP 127/75
[2020-05-18 09:17] LABS: Band Neutrophils % (manual) 7; Eosinophils % (manual) 1 (0-7); Lymphocytes % (manual) 8 (10.0-50.0); Metamyelocytes % 2; Monocytes % (manual) 6 (0-12)
[2020-05-18] MEDS: SOD CHL 0.9%/ KCL 40MEQ 1,000 ML IV SCH (09:45)
[2020-05-18] MEDS: CHOLECALCIFEROL (VITD3) 1,000UNIT=25mCg TAB PO SCH (10:26)
[2020-05-18] MEDS: ASCORBIC ACID 500 MG TAB PO SCH (10:27)
[2020-05-18] MEDS: ENOXAPARIN SOD 40 MG/0.4 ML SYRINGE SC SCH (10:28)
[2020-05-18] MEDS: LISINOPRIL 20 MG TAB PO SCH (10:28)
[2020-05-18] MEDS: ZINC SULFATE 220mg CAP or TAB PO SCH (11:52)
[2020-05-18 12:48] VITALS: BP 141/92
[2020-05-18 16:49] VITALS: BP 119/79
--- NOTE | 2020-05-18 19:02 | NUR ---
Opening Shift Note Assumed care of patient, awake and alert. Bed locked in lowest position, side rails up X2, call light within reach. No S/S of distress/SOB or pain. Instructed on POC and to call for assist PRN, will continue to monitor for changes Q1hr and PRN.
--- NOTE | 2020-05-18 19:51 | NUR ---
MED REFUSE: PATIENT REFUSED CLINIMIX, STATES "THAT MEDICATION IS WHAT GIVES ME DIARRHEA"
[2020-05-18 20:00] VITALS: BP 121/84
[2020-05-18] MEDS ORDERED: AMINO ACID INFUSION IN D5W 2,000 ML IV NR (20:00)
[2020-05-18 22:00] VITALS: BP 132/77
--- NOTE | 2020-05-18 23:11 | NUR ---
MED REFUSED: BLOOD SUGAR 142, PATIENT REFUSED INSULIN
--- NOTE | 2020-05-18 23:12 | NUR ---
MED HELD: APRESOLINE HELD DUE TO B/P 122/79 88HR.
[2020-05-19] MEDS: hydrALAZINE HCL 25 MG TAB PO SCH ×2 (00:13→05:34)
--- NOTE | 2020-05-19 00:17 | NUR ---
SCHOOL JANITOR: BLOOD PRESSURE 126/76 86 HEART RATE. APRESOLINE 25MG PO ADMINISTERED.
--- NOTE | 2020-05-19 02:26 | NUR ---
ROUNDS: PATIENT ASLEEP ON RIGHT SIDE. NO SIGNS OF DISTRESS/ SOB.
[2020-05-19] MEDS: SOD CHL 0.9%/ KCL 40MEQ 1,000 ML IV SCH (04:34)
[2020-05-19 05:00] VITALS: BP 123/73
[2020-05-19] MEDS: InsuLIN REG 1unit/0.01ml Soln (100units/ml) SC SCH ×2 (05:30→12:05)
[2020-05-19] MEDS: ACCU-CHEK COMFORT CURVE STRIP VI SCH ×2 (05:32→12:18)
[2020-05-19] MEDS: PIPERACILLIN-TAZOB 3.375GM 100 ML IV SCH ×2 (05:34→12:00)
[2020-05-19 05:35] LABS: Hematocrit 40.7 % (41.0-53.0); Hemoglobin 13.4 g/dL (13.5-17.5); Mean Corpuscular Hemoglobin 31.6 pg (28.0-32.0); Mean Corpuscular Volume 95.6 fL (80.0-100.0); Platelet Count (auto) 296 10^3/uL (140-450); Red Blood Cells 4.25 10^6/uL (4.5-5.90); Red Cell Distribution Width 13.5 % (11.8-14.3); White Blood Cell 11.2 10^3/uL (4.4-10.8)
[2020-05-19 05:46] LABS: Basophils % (manual) 0 (0.0-2.0); Blast Cells 0; Metamyelocytes % 0; Myelocytes % 0; Promyelocytes % 0; Reactive Lymphocytes 0
[2020-05-19 05:51] LABS: Albumin 2.3 g/dL (3.4-5.0); Calcium 8.9 mg/dL (8.5-10.1); Magnesium 2.6 mg/dL (1.6-2.6); Potassium 3.5 mmol/L (3.5-5.1)
[2020-05-19 05:57] LABS: BUN/Creatinine Ratio 5.7; Bilirubin, Total 0.5 mg/dL (0.2-1.0); Phosphorus 4.6 mg/dL (2.5-4.90); Total Protein 7.1 g/dL (6.4-8.2)
[2020-05-19 06:45] LABS: Band Neutrophils % (manual) 7; Eosinophils % (manual) 2 (0-7); Lymphocytes % (manual) 17 (10.0-50.0); Monocytes % (manual) 5 (0-12)
[2020-05-19 08:00] VITALS: BP 125/81
--- NOTE | 2020-05-19 08:00 | NUR ---
ASSESSMENT NOTE PT IS ALERT ORIENTED X4, SITTING AT THE SIDE OF THE BED, ABLE TO VERBALIS HIS NEEDS, SELF REPOSITION, PAIN 0/10, AMBULATE NEEDED, NO DISTRESS NOTED, CALL LIGHT WITHIN REACH
[2020-05-19 09:17] VITALS: BP 119/74
[2020-05-19] MEDS: PANTOPRAZOLE 40 MG TAB PO SCH (09:31)
[2020-05-19] MEDS: ZINC SULFATE 220mg CAP or TAB PO SCH (09:31)
[2020-05-19] MEDS: CHOLECALCIFEROL (VITD3) 1,000UNIT=25mCg TAB PO SCH (09:31)
[2020-05-19] MEDS: LISINOPRIL 20 MG TAB PO SCH (09:33)
[2020-05-19] MEDS: METOPROLOL TARTRATE 25 MG TAB PO SCH (09:33)
[2020-05-19] MEDS: ASCORBIC ACID 500 MG TAB PO SCH (09:34)
[2020-05-19] MEDS: ENOXAPARIN SOD 40 MG/0.4 ML SYRINGE SC SCH (09:34)
[2020-05-19] MEDS: INSULIN LANTUS (GLARGINE) 1 /0.01ml (100units/ml) SC SCH (09:35)
[2020-05-19] MEDS ORDERED: POTASSIUM CHL 20 Meq TABLET PO SCH (10:00)
--- NOTE | 2020-05-19 10:00 | NUR ---
LIFE STYLE MODIFICATIONS REGARDING DIABETES AND HOW TO DECREASE A1C, DISCUSSED WITH PT, VERBALIS UNDERSTANDING
[2020-05-19] MEDS ORDERED: LISI-646 PO (10:16)
[2020-05-19] MEDS ORDERED: MET25T PO (10:16)
[2020-05-19] MEDS ORDERED: POTA-220 PO (10:16)
[2020-05-19] MEDS ORDERED: ASCO500T11 PO (10:16)
[2020-05-19] MEDS ORDERED: LEVO750T8 PO (10:16)
[2020-05-19] MEDS ORDERED: ATOR20TA50 PO (10:16)
[2020-05-19] MEDS ORDERED: ZINC220T6 PO (10:16)
[2020-05-19] MEDS ORDERED: PANT40T PO ×2 (10:16→12:21)
[2020-05-19] MEDS ORDERED: INSLANTI SC (10:16)
[2020-05-19 10:18] LABS: Hepatitis B Core IgM Negative; Hepatitis B Surface Antigen Negative (Negative); Hepatitis C Antibody Negative (Negative)
[2020-05-19 10:24] LABS: Hepatitis A Ab IgM Negative
--- NOTE | 2020-05-19 11:20 | NUR ---
DR BURDICK AT BED SIDE WITH ALL DISCHARGE INSTRUCTION, FOR PT TO FOLLOW UP WITH DR TAVAREZ OUT PT AND DR SOOD, CHECK THE BLOOD SUGAR ACCORDINGLY AND FOLLOW YP OUT PATIENT WITH [facility], AND CONTINUE TO TAKE FULL LIQUID DIET FOR 2 WEEKS, VERBALIS UNDERSTANDING
--- NOTE | 2020-05-19 11:36 | NUR ---
Nutrition Followup Notes Wt: 95.0 kg Pt was sleeping with no family by bedside. pt with improving pancreatitis. pt is now advanced to full liq diet with adequate Po fo 100% x 4 per RN doc. Est energy needs 7958-6401 kcal (18-20 kcal 98.5kg), Est protein needs 67-87g (1-1.3g/kg IBW 67kg). Will reassess prn. LABS: GLU 152 H ALB 2.3 L GI: Pt had 1 BM today per RN doc. BS: 20 low risk. Refer to wound assessment report for full details. PES: 1) Inadequate oral intake aeb pt with a clear liquid diet with 75% po intake r/t current medical condition 2) Altered nutrition related labs aeb pt with hyponatremia, hypokalemia, hypoalb, hyperglycemia r/t current medical condition Comments: Will continue to monitor PO status, skin status, pertinent labs and weight trends. Will f/u in 3-5 days Rec: 1) Refer to [employer] dietitian on DC. 2) advance diet as medically feasible. 3) Continue current plan of care
--- NOTE | 2020-05-19 12:11 | NUR ---
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
[2020-05-19] MEDS ORDERED: HYDR50TA15 PO (12:40)
[2020-05-19 13:04] VITALS: BP 119/74
[2020-05-19 13:05] VITALS: BP 124/93
--- NOTE | 2020-05-19 14:00 | NUR ---
Discharge instructions given as ordered. Encourage to follow up with PMD as instructed. All questions and concerns addressed. Patient verbalized understanding. Medication reconciliation form completed and copy given to patient. Home medications held in Pharmacy returned to patient, and needed vaccines given. IV removed with catheter intact, pressure dressing applied, Telemetry unit returned to ICU. Patient taken to vehicle via wheelchair with all personal belongings, accompanied by staff and family member. No distress noted at time of departure.
== END 2020-05-19 14:00 | disposition home or self-care (01) | DRG 720 ==
LOC: ER 17:59 → TELE 18:00 → TELE-WESTW 05-11 10:32 → TELE-E-ADS 05-13 14:26 → TELE-CENTR 05-13 19:55
PROVIDERS: ADMIT Nurse Practitioner; ATTEND Internal Medicine
DX: A41.9 Sepsis, unspecified organism (principal); E11.10 Type 2 diabetes mellitus with ketoacidosis without coma; K85.20 Alcohol induced acute pancreatitis without necrosis or infection; J18.9 Pneumonia, unspecified organism; K29.20 Alcoholic gastritis without bleeding; E66.01 Morbid (severe) obesity due to excess calories; Z20.828 Contact with and (suspected) exposure to other viral communicable diseases; E78.5 Hyperlipidemia, unspecified; E83.39 Other disorders of phosphorus metabolism; E87.5 Hyperkalemia; E87.6 Hypokalemia; F10.10 Alcohol abuse, uncomplicated; F12.90 Cannabis use, unspecified, uncomplicated; F17.210 Nicotine dependence, cigarettes, uncomplicated; I10 Essential (primary) hypertension; K40.20 Bilateral inguinal hernia, without obstruction or gangrene, not specified as recurrent; K76.0 Fatty (change of) liver, not elsewhere classified; Z82.49 Family history of ischemic heart disease and other diseases of the circulatory system; Z83.3 Family history of diabetes mellitus; Z88.8 Allergy status to other drugs, medicaments and biological substances; E87.1 Hypo-osmolality and hyponatremia; Z68.32 Body mass index [BMI] 32.0-32.9, adult
CPT/HCPCS: 36415; 36600; 71045; 71250; 71275; 74176; 80048; 80053; 80061; 80074; 80076; 80307; 81001; 82010; 82040; 82150; 82533; 82728; 82805; 82962; 83036; 83605; 83615; 83690; 83735; 83930; 84100; 84132; 84443; 84478; 85007; 85025; 85027; 85379; 85610; 85730; 86141; 86703; 87040; 87045; 87427; 87493; 87804; 93005; 93306; 93975; 96361; 96374; 96375; 99291; C9113; G0378; J1815; J2001; J2405; J2543; J3480; J3490; J7060; Q9956